=== PATIENT | male | born 1985 | race Caucasian/White ===

== ENCOUNTER 2024-02-15 04:24 | Day surgery (SDC) | payer OTHER ==
[~2024-02-15] VITALS: Ht 190.5 cm; Wt 105.0 kg
[2024-02-15] VITALS (231 sets, daily range): BP systolic 96–172; BP diastolic 54–115
--- NOTE | 2024-02-15 07:00 | NUR ---
Patient arrived to the ANR suite, identification and demographics confirmed. Patient to room 9, AAO, ambulatory, vitals obtained, ID/allergy/fall bands placed, changed into hospital gown, RASHEL hose, and non-slip socks. Procedure and timeline explained for treatment and discharge. All questions answered and the patient presents no concerns at this time.
[2024-02-15] MEDS ORDERED: CYANOCOBALAMIN 500 MCG/TAB ( B12) PO PRN (07:30)
[2024-02-15] MEDS ORDERED: FAMOTIDINE 20 MG/TAB PO PRN (07:30)
[2024-02-15] MEDS ORDERED: diazePAM 5 MG/TAB PO PRN ×2 (07:30→08:30)
[2024-02-15] MEDS ORDERED: cloNIDine HCL 0.1 MG/TAB PO PRN (07:30)
[2024-02-15] MEDS ORDERED: ALBUTEROL SULFATE 2.5 MG VIAL IN PRN (07:30)
[2024-02-15] MEDS ORDERED: LACTATED RINGER'S 1,000 ML IV PRN ×3 (07:30→19:00)
[2024-02-15] MEDS ORDERED: PANTOPRAZOLE SODIUM Sesquihydr 40 MG/TAB PO PRN (07:30)
[2024-02-15] MEDS ORDERED: SCOPOLAMINE 1.5 MG DIS TD PRN (07:30)
--- NOTE | 2024-02-15 07:39 | NUR ---
Dr. Beckett telephoned with patient intake information including usage, dose, last dose/time taken and initial vital signs. Patient history and allergies reviewed with MD. Orders received for 10 mg PO Valium and 0.3 mg PO Clonidine now. Will reassess per protocol in 1.5 hours and update MD with assessment and vitals.
[2024-02-15] MEDS ORDERED: ASCORBIC ACID 4,000 MG in SODIUM CHLORIDE 0.9% 1,000 ML IV SCH (08:00)
[2024-02-15 08:28] LABS: BASO% 0.6 % (0-3); EOS% 6.4 % (0-8); HEMATOCRIT 40.7 % (39.0-50.0); HEMOGLOBIN 13.4 g/dl (14.0-18.0); IMMATURE GRANULOCYTES 0.7 % (0.0-5.0); LYMPH% 40.1 % (15-41); MEAN CELL VOLUME 92.7 fL CALC (80.0-100.0); MEAN CORPUSCULAR HGB 30.5 pG CALC (26.0-32.0); MEAN CORPUSCULAR HGB CONC 32.9 g/dL CAL (32.0-36.0); MONO% 11.2 % (2-13); NEUT# 3.31 thou/uL (1.82-7.42); RED BLOOD COUNT 4.39 mill/uL (4.70-6.10); RED CELL DISTRI WIDTH 12.9 % (11.5-15.5)
[2024-02-15 08:45] LABS: ALBUMIN 4.4 g/dL (3.2-5.0); BILIRUBIN, TOTAL 0.3 mg/dL (0.2-1.3); CREATININE 0.7 mg/dL (0.7-1.3); POTASSIUM 4.4 mmol/l (3.5-5.1); TOTAL PROTEIN 7.3 g/dL (6.3-8.2)
[2024-02-15] MEDS ORDERED: ROCURONIUM BROMIDE 10 MG/ML 5ML VIAL IV PRN (09:00)
[2024-02-15] MEDS ORDERED: LIDOCAINE HCL 1% (10MG/ML) 100 MG/10 ML MDV IV PRN (09:00)
[2024-02-15] MEDS ORDERED: cloNIDine HYDROCHLORIDE 100 MCG/ML 10 ML INJ IV PRN (09:00)
[2024-02-15] MEDS ORDERED: DEXAMETHASONE SODIUM PHOSPHATE PF 10 MG/ML SDV IV PRN ×2 (09:00→19:00)
[2024-02-15] MEDS ORDERED: NALTREXONE HCL 50 MG/TAB VT PRN (09:00)
[2024-02-15] MEDS ORDERED: MIDAZOLAM HCL 2 MG/2 ML VIAL IV PRN (09:00)
[2024-02-15] MEDS ORDERED: POTASSIUM CHLORIDE 10 MEQ/50 ML BAG IV PRN (09:00)
[2024-02-15] MEDS ORDERED: DiphenhydrAMINE HCL 50 MG/ML SDV IV PRN (09:00)
[2024-02-15] MEDS ORDERED: OCTREOTIDE ACETATE 100 MCG/VIAL SDV SC PRN (09:00)
[2024-02-15] MEDS ORDERED: MAGNESIUM SULFATE HEPTAHYDRATE 100 ML IV PRN (09:00)
[2024-02-15] MEDS ORDERED: PROPOFOL 10 MG/ML 100ML VIAL IV PRN (09:00)
[2024-02-15] MEDS ORDERED: STERILE WATER FOR IRRIGATION 1,000 ML BTL IR PRN (09:00)
[2024-02-15] MEDS ORDERED: cloNIDine HCL 0.1 MG/TAB VT PRN (09:00)
[2024-02-15] MEDS ORDERED: SUCCINYLCHOLINE CHLORIDE 20 MG/ML 10ML VIAL IV PRN (09:00)
[2024-02-15] MEDS ORDERED: LIDOCAINE HCL 1% (10MG/ML) 100 MG/10 ML MDV VT PRN ×2 (09:00)
[2024-02-15] MEDS ORDERED: PROPOFOL 100 ML IV PRN (09:00)
[2024-02-15] MEDS ORDERED: ONDANSETRON HCl 4 MG/2 ML SDV IV PRN ×3 (09:00→19:00)
[2024-02-15] MEDS ORDERED: THIAMINE HCL 100 MG/ML 2ML VIAL IV PRN (09:00)
[2024-02-15] MEDS ORDERED: diazePAM 5 MG/TAB VT PRN (09:00)
--- NOTE | 2024-02-15 09:18 | NUR ---
Patient resting comfortably in bed. Easily aroused, maintains focus, and drifts back to sleep. No signs of active withdrawal or distress noted at this time. Continuous SPO2, rhythm, and respiratory monitoring initiated. IVF @ 250 mL/HR, room air, VSS.
--- NOTE | 2024-02-15 10:42 | NUR ---
DR. BURGOS AT BEDSIDE TO ASSESS PT AND DISCUSS PROCEDURE AND POC.
--- NOTE | 2024-02-15 11:17 | NUR ---
Induction Note Patient to ANR procedure room. Time out performed at 1050. Patient placed on monitors, Cindy hugger, bilateral wrist restraints applied for ET tube protection. Versed 5mg given IV push at 1051 Tourniquet applied to right arm Lidocaine 100mg given at 1112 IV push followed by Rocoronium 10mg at 1113 IV push and held for 90 seconds. Propofol bolus of 120mg given at 1115 IV push. Succinylcholine 80mg given IV push at 1116. Smooth intubation with 7.5 ETT. Positive CO2. Positive Auscultation for air exchange. ET tube secured with tube holly 22 @ the lip. Patient placed on ventilator for spontaneous ventilation. Placed on Propofol IV drip at 1117. OG inserted. Positive air on auscultation. Positive gastric content. Stomach washed at this time.
--- NOTE | 2024-02-15 11:35 | NUR ---
OG close note Stomach washed at this time. Naltrexone 50 mg with Clonidine 0.3 mg via OG tube. OG will be clamped for 45 minutes.
[2024-02-15] MEDS ORDERED: METOPROLOL TARTRATE 5 MG/5 ML VIAL IV ONE ×2 (12:09→12:25)
--- NOTE | 2024-02-15 12:20 | NUR ---
OG open note OG open at this time. Gastric content draining into drainage bag. OG to drain for 45 minutes. Propofol will be titrated down based on patient.
[2024-02-15] MEDS ORDERED: hydrALAZINE HCL 20 MG/ML VIAL(1 ML) IV ONE (12:25)
--- NOTE | 2024-02-15 13:05 | NUR ---
OG close note Stomach washed at this time. Naltrexone 50 mg with Clonidine 0.3 mg via OG tube. OG will be clamped for 45 minutes.
[2024-02-15] MEDS ORDERED: NALTREXONE50 MG PO (13:22)
[2024-02-15] MEDS ORDERED: CLONIDINE0.1 MG PO (13:22)
[2024-02-15] MEDS ORDERED: KLONOPIN2 MG PO (13:22)
--- NOTE | 2024-02-15 14:35 | NUR ---
OG close note Stomach washed at this time. Naltrexone 50 mg with Clonidine 0.2 mg via OG tube. OG will be clamped for 45 minutes.
--- NOTE | 2024-02-15 17:05 | NUR ---
OG close note Stomach washed at this time. Naltrexone 50 mg, Valium 10mg, and Clonidine 0.2 mg via OG tube. OG will be clamped for 30 minutes for closing dose.
--- NOTE | 2024-02-15 17:52 | NUR ---
Extubation note Closing medications given Benadryl 50mg IV push, Decadron 10mg IV push,Magnesium 4 grams IV, Zofran 8mg IV push, Octreotide 100mcg SC. Stomach washed out prior to extubation. Suctioned gastric content. OG removed. Patient extubated. Propofol Discontinued. Wrist restraints removed. Icndy hugger Removed. See ANR Moderate sedate recovery record for further notes and assessment.
--- NOTE | 2024-02-15 18:41 | NUR ---
PATIENT ARRIVED FROM [facility] TO [facility]; RESTING IN BED; NO S/S OF DISTRESS; ON 2L OF 02; BREATHING UNLABORED AND EVEN; 20G ON RFA ADN 18G ON LAC; LR RUNNING @100 ON LAC; PERSONAL ITEMS IN CLOSET; VITALS STABLE; SUCTION SMALL AMOUNT OUT OF MOUTH AT BEDSIDE; BEDSIDE REPORT CONDUCTED; CALL LIGHT WITHIN REACH, PERSONAL ITEMS AWAY; BED IN LOWEST POSTION; BED ALARM ACTIAVTED
--- NOTE | 2024-02-15 18:41 | NUR ---
PT TRANSFERED TO [facility] RM 288. VSS. BEDSIDE REPORT PROVIDED TO YUKI NGUYEN. ALL PT BELONGINGS SENT WITH PT TO ROOM. BED ALARM SET FOR SAFETY.
--- NOTE | 2024-02-15 18:55 | NUR ---
PHONE CALL PLACED TO PT SIGNIFICANT OTHER AND FAMILY TO PROVIDED UPDATE. ALL QUESTIONS AND CONCERNS ANSWERED AT THIS TIME. INFORMED FAMILY THAT THEY SHOULD RECEIVE ANOTHER PHONE CALL TOMORROW WITH UPDATE AND DISCHARGE PLANNING. FAMILY VERBALIZED UNDERSTANDING.
[2024-02-15] MEDS ORDERED: ACETAMINOPHEN 500 MG TAB PO PRN (19:00)
[2024-02-15] MEDS ORDERED: KETOROLAC TROMETHAMINE 30 MG/ML SDV IV PRN (19:00)
[2024-02-15] MEDS ORDERED: PROMETHAZINE HCL 12.5 MG in SODIUM CHLORIDE 0.9% 50 ML IV PRN (19:00)
[2024-02-15] MEDS ORDERED: ACETAMINOPHEN 1,000 MG/100 ML VIAL IV PRN (19:00)
[2024-02-15] MEDS ORDERED: PROMETHAZINE HCL 25 MG in SODIUM CHLORIDE 0.9% 50 ML IV PRN (19:00)
[2024-02-15] MEDS ORDERED: HALOPERIDOL LACTATE 5 MG/ML SDV IV PRN (19:00)
[2024-02-15] MEDS ORDERED: Pantoprazole Sodium 40 MG VIAL (Protonix) IV SCH (20:00)
--- NOTE | 2024-02-15 20:00 | NUR ---
RECEIVED REPORT FROM NURSE SHARON MONACO IN ROOM 288 PATIENT ON O2 @ 2LPM VUIA NC, LR INFUSING AT 100CC/HR RAC G 20 AND SALINE LOCK ON LFA PATENT FLUSHES WELL, NO DISCOMFORTS NOTE AT THSI TIME. BREATHING UNLABORED. BED ALARM IN PLACED.
--- NOTE | 2024-02-15 20:50 | NUR ---
PATINET C/O PAIN PRN IV TYLENOL GIVEN.
[2024-02-15] MEDS ORDERED: diazePAM 10 MG/2 ML VIAL IV PRN (21:00)
[2024-02-15] MEDS ORDERED: PATIENT' OWN MED CONTROLLED 1 EA DOSE IV PRN (21:00)
[2024-02-15] MEDS ORDERED: cloNIDine HCL 0.1 MG/TAB PO SCH (23:00)
[2024-02-15] MEDS ORDERED: clonazePAM 1 MG/TAB PO SCH (23:00)
--- NOTE | 2024-02-16 | NUR ---
PATIENT RSETING IN BED, EYES CLOSED, BREATHING UNLABORED BED ALARM IN PLACED.
[2024-02-16] MEDS ORDERED: cloNIDine HCL 0.1 MG/TAB PO PRN (04:00)
[2024-02-16] MEDS ORDERED: clonazePAM 1 MG/TAB PO PRN ×2 (04:00→08:00)
[2024-02-16 04:17] VITALS: BP 147/83
--- NOTE | 2024-02-16 04:48 | NUR ---
PRN TYLENOL IV GIVEN FOR PAATIENT'S GEN BODY ACHES, PRN CLONDINE AND KLONIOPIN GIVEN FOR RESTLESNESS.
[2024-02-16 05:03] LABS: BASO% 0.1 % (0-3); HEMATOCRIT 37.7 % (39.0-50.0); HEMOGLOBIN 12.8 g/dl (14.0-18.0); IMMATURE GRANULOCYTES 0.6 % (0.0-5.0); LYMPH% 11.5 % (15-41); MEAN CELL VOLUME 90.4 fL CALC (80.0-100.0); MEAN CORPUSCULAR HGB 30.7 pG CALC (26.0-32.0); MONO% 3.1 % (2-13); NEUT# 9.41 thou/uL (1.82-7.42); NEUT% 84.7 % (42-76); RED BLOOD COUNT 4.17 mill/uL (4.70-6.10); RED CELL DISTRI WIDTH 12.9 % (11.5-15.5)
[2024-02-16 05:25] LABS: ALBUMIN 4.1 g/dL (3.2-5.0); CREATININE 0.7 mg/dL (0.7-1.3); POTASSIUM 3.6 mmol/l (3.5-5.1); TOTAL PROTEIN 6.9 g/dL (6.3-8.2)
[2024-02-16 05:41] LABS: BILIRUBIN, TOTAL 0.5 mg/dL (0.2-1.3)
[2024-02-16] MEDS ORDERED: NALTREXONE HCL 50 MG/TAB PO SCH ×2 (08:00→11:00)
[2024-02-16] MEDS ORDERED: POTASSIUM CHLORIDE 20 MEQ/TAB PO SCH (08:00)
[2024-02-16] MEDS ORDERED: ACETAMINOPHEN 325 MG/TAB PO SCH (08:00)
[2024-02-16] MEDS ORDERED: cloNIDine HCL 0.1 MG/TAB PO SCH (08:00)
[2024-02-16] MEDS ORDERED: PANTOPRAZOLE SODIUM Sesquihydr 40 MG/TAB PO SCH (08:00)
[2024-02-16 08:04] VITALS: BP 127/75
--- NOTE | 2024-02-16 08:52 | NUR ---
Patient resting in bed with eyes closed; breathing unlabored and even on room air. morning meds tolerated well with gatorade. vitals stable.encouraged patient to eat breakfast. IV infusing LR in LAC @100. IV site clean and intact. patient shows no signs of distress. bed in lowest position. call light in reach, bed alarm activated.
[2024-02-16] MEDS ORDERED: ACETAMINOPHEN 500 MG TAB PO PRN (09:00)
[2024-02-16] MEDS ORDERED: Cholecalciferol 2,000 UNIT/TAB PO PRN (09:00)
[2024-02-16] MEDS ORDERED: MAGNESIUM OXIDE 400 MG/TAB PO PRN (09:00)
--- NOTE | 2024-02-16 09:58 | NUR ---
PATIENT SWEATING AND PUPILS NOT REPONDING TO LIGHT; VISUALLY SEEM MORE OUT OF IT THEN BEFORE; TALKED TO HARITHA CHU ANR SUP, AND GOT VERBAL ORDER FOR ANOTHER DOSE OF NALTREXONE 25MG AWAITING PHARMACY
--- NOTE | 2024-02-16 10:02 | NUR ---
CALLED INFORMING HIM OF STATUS OF PATIENT; PROVIDER APPROVED THE NALTREXONE 25MG AND HOLD ALL SEDATIVES INCLUDING CLINDINE AND KLONOPIN
--- NOTE | 2024-02-16 11:30 | NUR ---
recheck patient pupils. dilated to light; not sweating anymore after second dose of nalrexone 25mg; elisabeth updated
--- NOTE | 2024-02-16 12:18 | NUR ---
patient called and wanted an update on patient; informed her that patient is stable; and has been going to restroom and walking several times in [place]; wanted nurse to let him know that she called and that she will be waiting on him; informed that Vicki CHU will be calling them shortly to give an update on patient and discharge information.
--- NOTE | 2024-02-16 12:28 | NUR ---
patient resting in bed;room air breathing unlabored and even; denied any pain; denied any n.d.v at this time; no s/s of withdrawls or distress at this time; iv site clean and intact running with LR @100; medication reviewed; personal items in closet ; patient has his phone; calllight within reach,verbalized understanding on how to use when given; encouraged patient to try to eat some lunch, ate less then 25% of it and contiunes to drink with no issues; patient tolerated potatssium adm;bed lowest poation; bed alarm activated
--- NOTE | 2024-02-16 14:45 | NUR ---
patient ambulated to another room to take shower with limited assit and got dressed
--- NOTE | 2024-02-16 16:46 | NUR ---
IV site discontinued, cath intact. No edema , no redness, voices no discomfort. Discharge instructions given. Patient verbalizes understanding of same. Discharged in stable condition via Wheelchair to Home with family. All belongings sent with pt.
== END 2024-02-16 16:42 | disposition home or self-care (01) | DRG 897 ==
LOC: MS2 04:24 → ANR 04:24 → MS2 04:27 → ANR 08:00 → EDSEX 08:00 → MS2 18:31 → ANR 02-16 16:42
PROVIDERS: ATTEND Anesthesiology
DX: F11.20 Opioid dependence, uncomplicated (principal)
CPT/HCPCS: J0131; J1100; J2354; J2470; J3475